=== PATIENT | female | born 1960 | race Caucasian/White ===

== ENCOUNTER → 2018-02-20 | Outpatient (CLI) | payer OTHER ==
--- NOTE | 2018-02-20 17:03 | CONS ---
CONSULTATION DATE OF SERVICE: 02/20/2018 This 57-year-old lady has [facility] excessive sleepiness. Her usual sleep schedule on working days from 10 p.m. to 5 a.m. on weekends from about 10:00 p.m. to 7:00 or 8:00 a.m. Usually no problems with falling asleep, although she has a TV set in bedroom. She sleeps usually on the side position, wakes up from sleep multiple times around 4 usually in about the same time and she has difficulties to fall asleep after awakenings. Positive history of nocturia up to 3 times and night sweats. In the morning she wakes up tired and after she come back from work she takes a nap. [place] Sleepiness Scale is 9. PAST MEDICAL HISTORY: Positive for hypertension, back problems, hot flushes. PAST SURGICAL HISTORY: Left ear surgery. MEDICATIONS: Losartan. SOCIAL HISTORY: Positive for smoking for about 15 pack years, quit about 30 years ago. Alcohol consumption occasional. FAMILY HISTORY: Hypertension, heart problems, hyperlipidemia, asthma, lung problems, sleep apnea. PHYSICAL EXAM: GENERAL lady without distress. VITAL SIGNS BP 158/90, HR 63, RR 16, height 64, weight 183.0, BMI 31.4, temperature 98.1, oxygen saturation room air 98%. HEENT PERRLA, EOMI, evaluation of oropharynx showed low position of soft palate. Neck 14 inches in circumference. NECK Supple, no JVD. Thyroid is not palpable. LUNGS Clear to percussion and to auscultation. Good air exchange. No wheezing or rhonchi. HEART S1, S2 regular. No murmurs, gallops, or rubs. ABDOMEN Soft and nontender. Bowel sounds are present. No organomegaly appreciated. EXTREMITIES No clubbing or cyanosis. SKIP LOADER Awake, alert, and oriented X3. Cranial nerves 2 to 7 intact. There is no fasciculation or atrophy. noted. No focal deficits observed. IMPRESSION: 1. Low position of soft palate, multiple awakenings from sleep, daytime sleepiness, possible obstructive sleep apnea-hypopnea syndrome. 2. Hypertension. 3. Menopause, hot flashes and night sweats. 4. Status post left ear surgery. PLAN: 1. Polysomnography for evaluation of patient's breathing during sleep. 2. CPAP/BiPAP titration if sleep study confirms obstructive sleep apnea-hypopnea syndrome. 3. Preferable position during sleep on the side. 4. No driving if patient feels any sleepiness. 5. I will see patient for follow up visit to explain results of testing and following plan. Thank you very much for referring this patient for consultation. Sincerely, Juan Olivo MD, PhD, FAASM Diplomat of [employer] [facility] [place] MMODL / GISSELN: [id number] /
== END | disposition home or self-care (01) ==
LOC: SLEEP 15:27
PROVIDERS: ATTEND Internal Medicine
DX: G47.10 Hypersomnia, unspecified (principal); M27.8 Other specified diseases of jaws; I10 Essential (primary) hypertension; N95.1 Menopausal and female climacteric states; R61 Generalized hyperhidrosis; Z98.890 Other specified postprocedural states; Z79.899 Other long term (current) drug therapy; Z87.891 Personal history of nicotine dependence
CPT/HCPCS: 99211

== ENCOUNTER → 2018-10-16 | Outpatient (CLI) | payer OTHER ==
--- NOTE | 2018-10-17 12:54 | MM ---
Reason for exam: screening (asymptomatic). Last mammogram was performed 1 year and 5 months ago. History: Patient is postmenopausal. Family history of premenopausal breast cancer in maternal aunt at age 45. Benign stereotactic core biopsy of the right breast, June 12, 2004. Benign stereotactic core biopsy of the right breast, June 12, 2004. Physical Findings: A clinical breast exam by your physician is recommended on an annual basis and results should be correlated with mammographic findings. MG 3D Screening Mammo W/Cad Bilateral CC and MLO view(s) were taken. Prior study comparison: May 23, 2017, bilateral MG 3d screening mammo w/cad. October 26, 2015, bilateral MG 3d screening mammo w/cad. There are scattered fibroglandular densities. Previous mammotome biopsy in the right breast x 3. There is chronic nodularity in the right breast. There is no discrete abnormality. ASSESSMENT: Benign, BI-RAD 2 RECOMMENDATION: Routine screening mammogram of both breasts in 1 year.
== END ==
LOC: RADMAMWWP 14:44
PROVIDERS: ATTEND Obstetrics & Gynecology
DX: Z12.31 Encounter for screening mammogram for malignant neoplasm of breast (principal); Z80.3 Family history of malignant neoplasm of breast
CPT/HCPCS: 77063; 77067

== ENCOUNTER → 2020-01-28 | Outpatient (CLI) | payer OTHER ==
--- NOTE | 2020-02-01 08:27 | MM ---
Reason for exam: screening (asymptomatic). Last mammogram was performed 1 year and 3 months ago. History: Patient is postmenopausal. Family history of premenopausal breast cancer in maternal aunt at age 45. Benign stereotactic core biopsy of the right breast, June 12, 2004. Benign stereotactic core biopsy of the right breast, June 12, 2004. Physical Findings: A clinical breast exam by your physician is recommended on an annual basis and results should be correlated with mammographic findings. MG 3D Screening Mammo W/Cad Bilateral CC and MLO view(s) were taken. Prior study comparison: October 16, 2018, bilateral MG 3d screening mammo w/cad. May 23, 2017, bilateral MG 3d screening mammo w/cad. There are scattered fibroglandular densities. No significant changes when compared with prior studies. ASSESSMENT: Negative, BI-RAD 1 RECOMMENDATION: Routine screening mammogram of both breasts in 1 year.
== END | disposition home or self-care (01) ==
LOC: RADMAMWWP 16:05
PROVIDERS: ATTEND Obstetrics & Gynecology
DX: Z12.31 Encounter for screening mammogram for malignant neoplasm of breast (principal)
CPT/HCPCS: 77063; 77067

== ENCOUNTER → 2022-01-18 | Outpatient (CLI) | payer OTHER ==
--- NOTE | 2022-01-19 07:04 | MM ---
Reason for Exam: Screening (asymptomatic). Last mammogram was performed 2 year(s) and 0 month(s) ago. Patient History: Menarche at age 13. First Full-Term at age 23. Postmenopausal. 06/12/2004, Benign Stereotactic Core Biopsy on the right side. 06/12/2004, Benign Stereotactic Core Biopsy on the right side. Maternal aunt had breast cancer, age 45. Risk Values: Dede 5 year model risk: 2.0%. NCI Lifetime model risk: 9.5%. Prior Study Comparison: 05/23/2017 Bilateral Screening Mammogram, [facility]. 10/16/2018 Bilateral Screening Mammogram, [facility]. 01/28/2020 Bilateral Screening Mammogram, [facility]. Tissue Density: There are scattered fibroglandular densities. Findings: Analyzed By CAD. There are 3 biopsy clips redemonstrated scattered throughout the right breast. Stable small well-defined oval-shaped mass towards the right axilla. Benign-appearing bilateral axillary lymph nodes are redemonstrated. There is no suspicious group of microcalcifications or new suspicious mass in either breast. Overall Assessment: Benign, BI-RAD 2 Management: Screening Mammogram of both breasts in 1 year. A clinical breast exam by your physician is recommended on an annual basis and results should be correlated with mammographic findings. Electronically signed and approved by: Gabo Rashid M.D.
== END | disposition home or self-care (01) ==
LOC: RADMAMWWP 09:57
PROVIDERS: ATTEND Family Medicine
DX: Z12.31 Encounter for screening mammogram for malignant neoplasm of breast (principal)
CPT/HCPCS: 77063; 77067

== ENCOUNTER → 2023-01-22 | Outpatient (CLI) | payer OTHER ==
--- NOTE | 2023-01-23 23:33 | MM ---
Reason for Exam: Screening (asymptomatic). Last screening mammogram was performed 12 month(s) ago. Patient History: Menarche at age 13. First Full-Term at age 23. Postmenopausal. 06/12/2004, Benign Stereotactic Core Biopsy on the right side. 06/12/2004, Benign Stereotactic Core Biopsy on the right side. Maternal aunt had breast cancer, age 45. Risk Values: Dede 5 year model risk: 2.1%. NCI Lifetime model risk: 9.2%. Prior Study Comparison: 10/16/2018 Bilateral Screening Mammogram, [facility]. 01/28/2020 Bilateral Screening Mammogram, [facility]. 01/18/2022 Bilateral MG 3D screening mammo w/cad, [facility]. Tissue Density: There are scattered fibroglandular densities. Findings: Analyzed By CAD. Unchanged intramammary lymph node posterior upper outer quadrant right breast. 3 microclips in the right breast from prior biopsies. There is no suspicious group of microcalcifications or new suspicious mass in either breast. Overall Assessment: Benign, BI-RAD 2 Management: Screening Mammogram of both breasts in 1 year. . Patient should continue monthly self-breast exams. A clinical breast exam by your physician is recommended on an annual basis. This exam should not preclude additional follow-up of suspicious palpable abnormalities. Note on Dede scores and lifetime risk: 1. A Dede score greater than 3% is considered moderate risk. If this is the case, consider specialist referral to assess eligibility for a risk reducing agent. 2. If overall lifetime risk for the development of breast cancer is 20% or higher, the patient may qualify for future screening with alternating mammogram and breast MRI. Electronically signed and approved by: Dung Curry M.D. Radiologist
== END | disposition home or self-care (01) ==
LOC: RADMAMWWP 12:20
PROVIDERS: ATTEND Family Medicine
DX: Z12.31 Encounter for screening mammogram for malignant neoplasm of breast (principal); Z78.0 Asymptomatic menopausal state; Z80.3 Family history of malignant neoplasm of breast
CPT/HCPCS: 77063; 77067

== ENCOUNTER → 2024-03-11 | Outpatient (CLI) | payer OTHER ==
--- NOTE | 2024-03-16 08:27 | MM ---
Reason for Exam: Screening (asymptomatic). Last mammogram was performed 1 year(s) and 1 month(s) ago. Patient History: Menarche at age 13. First Full-Term at age 23. Postmenopausal. 06/12/2004, Benign Stereotactic Core Biopsy on the right side. 06/12/2004, Benign Stereotactic Core Biopsy on the right side. Maternal aunt had breast cancer, age 45. Risk Values: Dede 5 year model risk: 2.1%. NCI Lifetime model risk: 8.9%. Prior Study Comparison: 01/28/2020 Bilateral Screening Mammogram, [facility]. 01/18/2022 Bilateral MG 3D screening mammo w/cad, [facility]. 01/22/2023 Bilateral MG 3D screening mammo w/cad, [facility]. Tissue Density: There are scattered areas of fibroglandular density. Findings: Analyzed By CAD. There is no suspicious group of microcalcifications or new suspicious mass in either breast. Overall Assessment: Benign, BI-RAD 2 Management: Screening Mammogram of both breasts in 1 year. . Patient should continue monthly self-breast exams. A clinical breast exam by your physician is recommended on an annual basis. This exam should not preclude additional follow-up of suspicious palpable abnormalities. Note on Dede scores and lifetime risk: 1. A Dede score greater than 3% is considered moderate risk. If this is the case, consider specialist referral to assess eligibility for a risk reducing agent. 2. If overall lifetime risk for the development of breast cancer is 20% or higher, the patient may qualify for future screening with alternating mammogram and breast MRI. [facility], , 03/16/2024 8:24 AM. Electronically signed and approved by: Doroteo Rubalcava M.D. Radiologis
== END | disposition home or self-care (01) ==
LOC: RADMAMWWP 06:50
PROVIDERS: ATTEND Family Medicine
DX: Z12.31 Encounter for screening mammogram for malignant neoplasm of breast
CPT/HCPCS: 77063; 77067